=== PATIENT | female | born 1965 | race Caucasian/White ===

== ENCOUNTER → 2018-06-26 | Outpatient (CLI) | payer OTHER, SELFPAY ==
--- NOTE | 2018-06-26 | DI.US.S_ITS ---
PROCEDURE: US PELVIC COMPLETE INDICATIONS: POSTMENOPAUSAL BLEEDING TECHNIQUE: Real-time scanning was performed of the pelvic organs, with image documentation. Additional endovaginal scanning was necessary due to incomplete visualization of the adnexal and endometrial structures by transabdominal scanning. COMPARISON: None. FINDINGS: Transabdominal scanning: Limited scanning through the kidneys shows no hydronephrosis. No pathologic free abdominal or pelvic fluid. Endovaginal scanning: Uterus: Uterus is normal in size at 5.7 x 3.1 x 5.1 cm. The endometrium measures 5.4 mm in combined thickness. 2.1 x 1.5 x 2.1 cm posterior intramural fibroid. Ovaries: Right ovary not visualized. Normal left ovary measured 1.8 x 1.0 x 1.9 cm. IMPRESSION: 1. Mild thickening of the endometrial complex measuring 5.4 mm in this postmenopausal female with history of vaginal bleeding. Gynecologic consultation is recommended. 2. 2.1 cm posterior intramural fibroid. Dictated by: Esdras Evans [facility] Interpreted: Montana Moody MD on 06/26/2018 at 11:07 Approved by: Montana Moody M.D. on 06/26/2018 at 13:22
== END ==
LOC: US 08:49
PROVIDERS: Visit Provider Family Medicine
DX: N95.0 Postmenopausal bleeding (principal); D25.1 Intramural leiomyoma of uterus
CPT/HCPCS: 76830; 76856

== ENCOUNTER 2020-08-17 13:34 | Emergency (ER) | payer BC, SELFPAY ==
[2020-08-17] VITALS (11 sets, daily range): BP systolic 116–171; BP diastolic 64–97; PULSE 60–69; RESP 18–27; TEMP 36.9; O2SAT 96–100; BMI 24.9
--- NOTE | 2020-08-17 13:56 | ED.BACK ---
HPI - Back Pain/Injury <Sarah Ortega PA-C - Last Filed: 08/17/20 22:09> General Chief Complaint: Back Pain/Injury Stated Complaint: states pulled muscle in her back Time Seen by Provider: 08/17/20 13:41 Source: patient Limitations: no limitations History of Present Illness HPI Narrative: Uncomfortable Appearing 55-year-old female history of tubal ligation, appendectomy, cholecystectomy presents to the emergency department complaining of back pain on the right side that has been present for 2 days and is worsening. She states she has been feeling unwell for the last few days and has been ?mostly in bed. She reports she has a intense constant burning pain in her right low back that does not radiate. She has also been having some nausea today. She thinks she may have been having some discomfort with urination recently but she is not 100% sure. Her pain seems to be better if she is lying flat and is worse if she is sitting up it does seem better in certain positions than others. She has not had a good appetite for the last couple of days and she has eaten very little and had very little to drink, reports she has also felt she has had some chills but denies any fever, abdominal pain, vomiting, diarrhea, constipation, body aches, chest pain, shortness of breath, cough or any other symptoms. Last bowel movement was earlier today was normal for her. She notes that she has had swollen lymph nodes under her chin for 3 months now, has been seen for this. MD Complaint: back pain Onset (ago): day(s) (2) Duration: constant Location: right flank and right lower back Severity: severe (6/10) Quality: burning Radiation: none Severity scale (1-10): 6 Relieving factors: supine Exacerbating factors: sitting upright Context: unknown (no injury) Associated symptoms: chills and other (tired last few days, nausea) Treatments prior to arrival: other (none) Related Data Home Medications Medication Instructions Recorded Confirmed triamcinolone acetonide [Triderm] 0.1 % TOPICAL #90 gm 02/20/13 Previous Rx's Medication Instructions Recorded baclofen 10 mg PO TID #20 tab 08/17/20 lidocaine 1 patch TOP DAILY #15 each 08/17/20 Allergies Allergy/AdvReac Type Severity Reaction Status Date / Time codeine AdvReac Verified 08/17/20 13:42 Review of Systems <Sarah Ortega PA-C - Last Filed: 08/17/20 22:09> Review of Systems Narrative: GENERAL: Positive for chills and fatigue, negative for malaise, fever, sweats. HEENT: Denies sinus pain, ear pain, sore throat, difficulty swallowing, dizziness, positive for swollen lymph nodes for 3 months. RESPIRATORY: Denies dyspnea, cough, wheezing, hemoptysis, sputum. CARDIOVASCULAR: Denies chest pain, palpitations, orthopnea, edema, GASTROINTESTINAL: Positive for nausea and reduced appetite reduced oral intake for 2 days, negative for vomiting, abdominal pain, diarrhea, constipation, melena. : Denies dysuria, frequency, incontinence, hematuria, urinary retention. MUSCULOSKELETAL: Positive for burning flank pain on the right side. Denies weakness, joint pain, or bony pain SKIN: Denies rash, skin lesions, or other NEUROLOGIC: Denies weakness, headache, numbness, change in speech, confusion, seizures, incoordination. PSYCHIATRIC: No concerning psychosocial issues. 12 point review of systems is negative except for those stated above Patient History <Sarah Ortega PA-C - Last Filed: 08/17/20 22:09> Social History Smoking Status: Current every day smoker Smoking Status: Current every day smoker alcohol intake frequency: holidays/special occasions only Substance Use Type: does not use Exam <Sarah Ortega PA-C - Last Filed: 08/17/20 22:09> Narrative Exam Narrative: GENERAL: 55 year old patient appears stated age. Well-nourished, well-developed patient, in moderate distress. HEAD: Atraumatic. Normocephalic. EYES: Pupils equal round and reactive. Extraocular motions intact. No scleral icterus. No injection or drainage. ENT: Nose without bleeding, purulent drainage. Throat without erythema, tonsillar hypertrophy or exudate. Airway patent. NECK: Trachea midline. Non tender. She has bilateral lymphadenopathy at the tonsillar nodes that is slightly tender to palpation. CARDIOVASCULAR: Regular rate and rhythm without murmurs, gallops, or rubs. RESPIRATORY: Clear to auscultation. Breath sounds equal bilaterally. No wheezes, rales, or rhonchi. GASTROINTESTINAL: Abdomen soft, she is tender in the right lower quadrant and slightly tender in the left lower quadrant, otherwise non-tender, nondistended, negative Arguello sign. EXTREMITIES: No edema or joint tenderness. BACK: Bilateral flank tenderness most significant and with CVA tenderness on the right. Otherwise Nontender without deformity or crepitance. NEURO: AOx3. SKIN: No rash or erythema of visible areas Initial Vital Signs Initial Vital Signs: Vital Signs Temperature 98.5 F 08/17/20 13:38 Pulse Rate 69 08/17/20 13:38 Respiratory Rate 18 08/17/20 13:38 Blood Pressure 171/75 H 08/17/20 13:38 Pulse Oximetry 99 08/17/20 13:38 <Yuko Sheikh DO - Last Filed: 08/20/20 07:36> Initial Vital Signs Initial Vital Signs: Vital Signs Temperature 98.5 F 08/17/20 13:38 Pulse Rate 69 08/17/20 13:38 Respiratory Rate 18 08/17/20 13:38 Blood Pressure 171/75 H 08/17/20 13:38 Pulse Oximetry 99 08/17/20 13:38 Scores <Sarah Ortega PA-C - Last Filed: 08/17/20 22:09> GCS [place] coma scale eye opening: Spontaneous Julisa coma scale verbal response: Orientated Julisa coma scale motor response: Obey commands Julisa coma scale total score: 15 Course <VIANCA Carter Last Filed: 08/17/20 22:09> Course Course Narrative: Patient has flank pain and CVA tenderness possibly consistent with a pyelonephritis, however she seems uncomfortable and has difficulty finding a position of comfort so I am also concerned for potential ureterolithiasis, she has had a reduced appetite as well as nausea and multiple previous abdominal surgeries I do feel it appropriate to get a CT scan for further evaluation. Muscle strain is possible however with abdominal tenderness CT is ordered [address] have returned fairly unremarkable she does have a slight white count however I suspect that this is stress reaction. Etiology of her pain is not 100% clear however on re-examination she does not have any abdominal pain she continues to have right sided pain in the area of the SI joint and paraspinal muscles of the lumbar region. She does have active muscle spasming present on exam. 16:52 Orders Ordered: Discontinued Medications Baclofen (Lioresal) 10 mg PO NOW ONE Stop: 08/17/20 16:44 Last Admin: 08/17/20 17:10 Dose: 10 mg Documented by: ALBA Fentanyl (Sublimaze) 50 mcg IV NOW ONE Stop: 08/17/20 15:22 Last Admin: 08/17/20 15:32 Dose: 50 mcg Documented by: MARK Fentanyl (Sublimaze) 50 mcg IV NOW ONE Stop: 08/17/20 16:50 Sodium Chloride (Normal Saline 0.9%) 1,000 mls @ 1,000 mls/hr IV BOLUS ONE Stop: 08/17/20 15:10 Last Infusion: 08/17/20 16:22 Dose: 0 mls/hr Documented by: Admin: 08/17/20 14:17 Dose: 1,000 mls/hr Documented by: MARK Ketorolac Tromethamine (Toradol) 15 mg IM NOW ONE Stop: 08/17/20 13:57 Last Admin: 08/17/20 14:16 Dose: 15 mg Documented by: MARK Ondansetron HCl (Zofran) 4 mg IV NOW ONE Stop: 08/17/20 13:57 Last Admin: 08/17/20 14:17 Dose: 4 mg Documented by: MARK Ondansetron HCl (Zofran) 4 mg IV NOW ONE Stop: 08/17/20 15:37 Last Admin: 08/17/20 15:38 Dose: 4 mg Documented by: MARK Vital Signs Vital signs: Vital Signs - 8 hr 08/17/20 14:30 08/17/20 15:39 08/17/20 15:40 Pulse Rate 63 61 Respiratory Rate 27 H Blood Pressure 158/69 H 139/64 Pulse Oximetry 98 100 100 08/17/20 16:00 08/17/20 16:01 08/17/20 16:30 Pulse Rate 62 62 Respiratory Rate Blood Pressure 116/97 H Pulse Oximetry 99 100 96 08/17/20 16:31 08/17/20 16:38 08/17/20 17:20 Pulse Rate 60 60 Respiratory Rate Blood Pressure 149/76 H 138/64 Pulse Oximetry 97 98 08/17/20 17:25 Pulse Rate 68 Respiratory Rate Blood Pressure 135/64 Pulse Oximetry 98 <Yuko Sheikh, DO - Last Filed: 08/20/20 07:36> Orders Ordered: Discontinued Medications Baclofen (Lioresal) 10 mg PO NOW ONE Stop: 08/17/20 16:44 Last Admin: 08/17/20 17:10 Dose: 10 mg Documented by: ALBA Fentanyl (Sublimaze) 50 mcg IV NOW ONE Stop: 08/17/20 15:22 Last Admin: 08/17/20 15:32 Dose: 50 mcg Documented by: MARK Fentanyl (Sublimaze) 50 mcg IV NOW ONE Stop: 08/17/20 16:50 Sodium Chloride (Normal Saline 0.9%) 1,000 mls @ 1,000 mls/hr IV BOLUS ONE Stop: 08/17/20 15:10 Last Infusion: 08/17/20 16:22 Dose: 0 mls/hr Documented by: Admin: 08/17/20 14:17 Dose: 1,000 mls/hr Documented by: MARK Ketorolac Tromethamine (Toradol) 15 mg IM NOW ONE Stop: 08/17/20 13:57 Last Admin: 08/17/20 14:16 Dose: 15 mg Documented by: MARK Ondansetron HCl (Zofran) 4 mg IV NOW ONE Stop: 08/17/20 13:57 Last Admin: 08/17/20 14:17 Dose: 4 mg Documented by: MARK Ondansetron HCl (Zofran) 4 mg IV NOW ONE Stop: 08/17/20 15:37 Last Admin: 08/17/20 15:38 Dose: 4 mg Documented by: MARK Vital Signs Vital signs: Vital Signs - 8 hr 08/17/20 14:30 08/17/20 15:39 08/17/20 15:40 Pulse Rate 63 61 Respiratory Rate 27 H Blood Pressure 158/69 H 139/64 Pulse Oximetry 98 100 100 08/17/20 16:00 08/17/20 16:01 08/17/20 16:30 Pulse Rate 62 62 Respiratory Rate Blood Pressure 116/97 H Pulse Oximetry 99 100 96 08/17/20 16:31 08/17/20 16:38 08/17/20 17:20 Pulse Rate 60 60 Respiratory Rate Blood Pressure 149/76 H 138/64 Pulse Oximetry 97 98 08/17/20 17:25 Pulse Rate 68 Respiratory Rate Blood Pressure 135/64 Pulse Oximetry 98 MDM - Back Pain/Injury <Sarah Ortega PA-C - Last Filed: 08/17/20 22:09> Differential Diagnosis Differential diagnosis: Likely lumbar radiculopathy, strain of lumbar region, renal colic, pyelonephritis, discitis and other (UTI, ureterolithiasis, adhesion, bowel obstruction) Medical Records Attestation: I reviewed the patient's medical records. Lab Data Attestation: I reviewed the patient's lab results. Result diagrams: 08/17/20 13:51 08/17/20 13:51 Labs: Lab Results 08/17/20 08/17/20 08/17/20 Range/Units 13:51 13:51 13:51 WBC 12.6 H (4.5-11.0) X10^3/uL RBC 4.59 (4.0-5.2) X10^6/uL Hgb 14.2 (12.0-16.0) g/dL Hct 42.7 (36-46) % MCV 93.0 (80-100) fL MCH 31.0 (26-34) PG MCHC 33.4 (30-36) % RDW 13.6 (11.6-14.8) % Plt Count 306 (150-400) X10^3/uL Neut % (Auto) 69.7 (50-75) % Lymph % (Auto) 24.6 L (25-40) % [place] % (Auto) 4.9 (3-14) % Eos % (Auto) 0.2 L (2-4) % Baso % (Auto) 0.6 (0-2) % Neut # (Auto) 8700 H (5201-2211) /uL Lymph # (Auto) 3100 (1095-4343) /uL [place] # (Auto) 600 (0-900) /uL Eos # (Auto) 0 (0-450) /uL Baso # (Auto) 100 (0-100) /uL Sodium 137 (137-145) mmol/L Potassium 3.9 (3.4-5.1) mmol/L Chloride 107 (98-107) mmol/L Carbon Dioxide 21 L (22-32) mmol/L BUN 12 (7-17) mg/dL Creatinine 0.54 (0.52-1.04) mg/dL Estimated GFR > 60.0 (>60) mL/min BUN/Creatinine Ratio 22.2 H (6-22) Glucose 102 H (70-100) mg/dL Lactate 0.9 (0.7-2.1) mmol/L Calcium 9.8 (8.4-10.2) mg/dL Total Bilirubin 0.7 (0.2-1.3) mg/dL AST 26 (14-36) IU/L ALT 15 (<35) IU/L Alkaline Phosphatase 91 (38-126) U/L Total Protein 8.0 (6.3-8.2) g/dL Albumin 4.7 (3.5-5.0) g/dL Globulin 3.3 (1.7-4.1) g/dL Albumin/Globulin Ratio 1.4 (1.0-2.8) Lipase (23-300) U/L Urine Color Urine Appearance Urine pH (4.5-8.0) Ur Specific [place] (1.000-1.035) Urine Protein (Negative) Urine Glucose (UA) (Negative) g/dL Urine Ketones (NEGATIVE) Urine Occult Blood (Negative) Urine Nitrate (Negative) Urine Bilirubin (NEGATIVE) Urine Urobilinogen (0.2) E.U./dL Ur Leukocyte Esterase (NEGATIVE) Urine RBC (0-5/HPF) Urine WBC (0-5/HPF) Ur Squamous Epith Cells (0-5/HPF) Urine Bacteria (None) Ur Culture Indicated? 08/17/20 08/17/20 Range/Units 13:51 15:11 WBC (4.5-11.0) X10^3/uL RBC (4.0-5.2) X10^6/uL Hgb (12.0-16.0) g/dL Hct (36-46) % MCV (80-100) fL MCH (26-34) PG MCHC (30-36) % RDW (11.6-14.8) % Plt Count (150-400) X10^3/uL Neut % (Auto) (50-75) % Lymph % (Auto) (25-40) % [place] % (Auto) (3-14) % Eos % (Auto) (2-4) % Baso % (Auto) (0-2) % Neut # (Auto) (4529-6130) /uL Lymph # (Auto) (0941-5768) /uL [place] # (Auto) (0-900) /uL Eos # (Auto) (0-450) /uL Baso # (Auto) (0-100) /uL Sodium (137-145) mmol/L Potassium (3.4-5.1) mmol/L Chloride (98-107) mmol/L Carbon Dioxide (22-32) mmol/L BUN (7-17) mg/dL Creatinine (0.52-1.04) mg/dL Estimated GFR (>60) mL/min BUN/Creatinine Ratio (6-22) Glucose (70-100) mg/dL Lactate (0.7-2.1) mmol/L Calcium (8.4-10.2) mg/dL Total Bilirubin (0.2-1.3) mg/dL AST (14-36) IU/L ALT (<35) IU/L Alkaline Phosphatase (38-126) U/L Total Protein (6.3-8.2) g/dL Albumin (3.5-5.0) g/dL Globulin (1.7-4.1) g/dL Albumin/Globulin Ratio (1.0-2.8) Lipase 172 (23-300) U/L Urine Color Yellow Urine Appearance Sl cloudy Urine pH 5.5 (4.5-8.0) Ur Specific [place] <=1.005 (1.000-1.035) Urine Protein Negative (Negative) Urine Glucose (UA) Negative (Negative) g/dL Urine Ketones 2+ H (NEGATIVE) Urine Occult Blood Trace-lysed (Negative) Urine Nitrate Negative (Negative) Urine Bilirubin Negative (NEGATIVE) Urine Urobilinogen 0.2 (0.2) E.U./dL Ur Leukocyte Esterase Negative (NEGATIVE) Urine RBC 0-1/hpf (0-5/HPF) Urine WBC 0-1/hpf (0-5/HPF) Ur Squamous Epith Cells 1-5 /hpf (0-5/HPF) Urine Bacteria Few (2-10) H (None) Ur Culture Indicated? Cult not indicated Imaging Data CT scan - abdomen/pelvis: Attestation: I personally reviewed and interpreted this imaging study as follows: Radiologist's Impression: [address] [address] [address] Scan Report Signed Patient: Sarah Gray WMR#: [id number] : 1965Acct:[id number] Age/Sex: 55 / FDate of Service: 08/17/20 Loc: ED Accession Number: [id number] Procedure: CT abdomen pelvis w con Ordering Provider: Sarah Ortega P.A-C PROCEDURE: CT ABDOMEN PELVIS W CON INDICATIONS: RLQ and R flank pain suspect ureterolithisis vs pyelo TECHNIQUE: After the administration of intravenous contrast, 5 mm thick sections acquired from the diaphragm to the symphysis. 5 mm coronal and sagittal reformats were acquired. For radiation dose reduction, the following was used: automated exposure control, adjustment of mA and/or kV according to patient size. COMPARISON: None. FINDINGS: Image quality: Excellent. ABDOMEN: Lung bases: Lung bases are clear. Heart size is normal. Solid organs: Liver is enlarged. Hepatic steatosis is seen. No discrete hepatic lesion. Gallbladder is surgically absent. Biliary system is non dilated. Pancreas enhances normally. Spleen is normal in size and enhancement. No adrenal nodules. Kidneys demonstrate normal size and enhancement, without hydronephrosis. Peritoneum and bowel: Bowel loops demonstrate normal wall thickness and caliber. No free fluid or air. Appendix is visualized and is within normal limits. Nodes and vessels: No retroperitoneal or mesenteric adenopathy by size criteria. Aorta and inferior vena cava are normal in size. Miscellaneous: Supraumbilical hernia is seen containing anterior wall of mid transverse colon. No evidence of incarceration. PELVIS: Genitourinary: Bladder wall thickness is normal. Miscellaneous: No inguinal hernias or adenopathy by size criteria. Subcentimeter bilateral inguinal lymph nodes are seen measures up to 9 millimeters in short axis diameter in left inguinal region. Bones: No suspicious bony lesions. No vertebral body compression fractures. Mild rightward scoliosis of lumbar spine is seen centered at L3 level. Degenerative endplate changes are noted throughout lumbar spine. IMPRESSION: 1. Hepatomegaly and hepatic steatosis. No discrete hepatic lesion. Prior cholecystectomy. 2. No renal stone or hydronephrosis. No perinephric fat stranding. No gross abnormality is seen in bilateral ureters and urinary bladder. 3. No bowel obstruction. Normal appendix. No free fluid or free air. No abnormal bowel wall thickening. 4. Supraumbilical hernia containing fat and anterior wall of mid transverse colon. No signs of incarceration. Dictated by: Montana Moody M.D. on 08/17/2020 at 14:28 Approved by: Montana Moody M.D. on 08/17/2020 at 14:34 [facility] Narrative Medical decision making narrative: Uncomfortable appearing 55-year-old woman to the emergency department complaining of right lower back and flank pain worsening over the last 2 days. Previous cholecystectomy, tubal ligation, appendectomy. No reported injury or trauma. Concern for pyelonephritis versus ureterolithiasis versus muscle strain or acute abdominal etiology. CT scan is unremarkable. Labs are also unremarkable including urine. Very mild leukocytosis I suspect is a stress reaction. On re-examination she has no abdominal pain, continues to have right flank pain and muscle spasming of the SI and right lower lumbar region. I believe the etiology of her pain is most likely a severe muscle spasm/muscle strain. She is discharged with baclofen, lidocaine patches advised to follow-up with physical therapy. As well as her primary care provider. Emergency return precautions provided, all questions answered. <Yuko Sheikh, DO - Last Filed: 08/20/20 07:36> Lab Data Labs: Lab Results 08/17/20 08/17/20 08/17/20 Range/Units 13:51 13:51 13:51 WBC 12.6 H (4.5-11.0) X10^3/uL RBC 4.59 (4.0-5.2) X10^6/uL Hgb 14.2 (12.0-16.0) g/dL Hct 42.7 (36-46) % MCV 93.0 (80-100) fL MCH 31.0 (26-34) PG MCHC 33.4 (30-36) % RDW 13.6 (11.6-14.8) % Plt Count 306 (150-400) X10^3/uL Neut % (Auto) 69.7 (50-75) % Lymph % (Auto) 24.6 L (25-40) % [place] % (Auto) 4.9 (3-14) % Eos % (Auto) 0.2 L (2-4) % Baso % (Auto) 0.6 (0-2) % Neut # (Auto) 8700 H (6455-2038) /uL Lymph # (Auto) 3100 (3835-7057) /uL [place] # (Auto) 600 (0-900) /uL Eos # (Auto) 0 (0-450) /uL Baso # (Auto) 100 (0-100) /uL Sodium 137 (137-145) mmol/L Potassium 3.9 (3.4-5.1) mmol/L Chloride 107 (98-107) mmol/L Carbon Dioxide 21 L (22-32) mmol/L BUN 12 (7-17) mg/dL Creatinine 0.54 (0.52-1.04) mg/dL Estimated GFR > 60.0 (>60) mL/min BUN/Creatinine Ratio 22.2 H (6-22) Glucose 102 H (70-100) mg/dL Lactate 0.9 (0.7-2.1) mmol/L Calcium 9.8 (8.4-10.2) mg/dL Total Bilirubin 0.7 (0.2-1.3) mg/dL AST 26 (14-36) IU/L ALT 15 (<35) IU/L Alkaline Phosphatase 91 (38-126) U/L Total Protein 8.0 (6.3-8.2) g/dL Albumin 4.7 (3.5-5.0) g/dL Globulin 3.3 (1.7-4.1) g/dL Albumin/Globulin Ratio 1.4 (1.0-2.8) Lipase (23-300) U/L Urine Color Urine Appearance Urine pH (4.5-8.0) Ur Specific [place] (1.000-1.035) Urine Protein (Negative) Urine Glucose (UA) (Negative) g/dL Urine Ketones (NEGATIVE) Urine Occult Blood (Negative) Urine Nitrate (Negative) Urine Bilirubin (NEGATIVE) Urine Urobilinogen (0.2) E.U./dL Ur Leukocyte Esterase (NEGATIVE) Urine RBC (0-5/HPF) Urine WBC (0-5/HPF) Ur Squamous Epith Cells (0-5/HPF) Urine Bacteria (None) Ur Culture Indicated? 08/17/20 08/17/20 Range/Units 13:51 15:11 WBC (4.5-11.0) X10^3/uL RBC (4.0-5.2) X10^6/uL Hgb (12.0-16.0) g/dL Hct (36-46) % MCV (80-100) fL MCH (26-34) PG MCHC (30-36) % RDW (11.6-14.8) % Plt Count (150-400) X10^3/uL Neut % (Auto) (50-75) % Lymph % (Auto) (25-40) % [place] % (Auto) (3-14) % Eos % (Auto) (2-4) % Baso % (Auto) (0-2) % Neut # (Auto) (0654-5332) /uL Lymph # (Auto) (1898-0906) /uL [place] # (Auto) (0-900) /uL Eos # (Auto) (0-450) /uL Baso # (Auto) (0-100) /uL Sodium (137-145) mmol/L Potassium (3.4-5.1) mmol/L Chloride (98-107) mmol/L Carbon Dioxide (22-32) mmol/L BUN (7-17) mg/dL Creatinine (0.52-1.04) mg/dL Estimated GFR (>60) mL/min BUN/Creatinine Ratio (6-22) Glucose (70-100) mg/dL Lactate (0.7-2.1) mmol/L Calcium (8.4-10.2) mg/dL Total Bilirubin (0.2-1.3) mg/dL AST (14-36) IU/L ALT (<35) IU/L Alkaline Phosphatase (38-126) U/L Total Protein (6.3-8.2) g/dL Albumin (3.5-5.0) g/dL Globulin (1.7-4.1) g/dL Albumin/Globulin Ratio (1.0-2.8) Lipase 172 (23-300) U/L Urine Color Yellow Urine Appearance Sl cloudy Urine pH 5.5 (4.5-8.0) Ur Specific [place] <=1.005 (1.000-1.035) Urine Protein Negative (Negative) Urine Glucose (UA) Negative (Negative) g/dL Urine Ketones 2+ H (NEGATIVE) Urine Occult Blood Trace-lysed (Negative) Urine Nitrate Negative (Negative) Urine Bilirubin Negative (NEGATIVE) Urine Urobilinogen 0.2 (0.2) E.U./dL Ur Leukocyte Esterase Negative (NEGATIVE) Urine RBC 0-1/hpf (0-5/HPF) Urine WBC 0-1/hpf (0-5/HPF) Ur Squamous Epith Cells 1-5 /hpf (0-5/HPF) Urine Bacteria Few (2-10) H (None) Ur Culture Indicated? Cult not indicated Discharge Plan Departure Patient Disposition: Home Clinical Impression: Muscle spasm Right lumbar pain Qualifiers: Chronicity: acute Sciatica presence: without sciatica Qualified Code(s): M54.5 - Low back pain Discharge Date/Time: 08/17/20 17:25 Instructions: DI for Low Back Pain, DI for Back Spasm, DI for Back Strain or Sprain Activity Restrictions/Additional Instructions: Thank you for letting us be part of your care in the emergency department today. There is no evidence of an emergent or life threatening illness at this time, but follow up with your doctor in 1-2 days is recommended nonetheless to continue to rule out serious underlying causes of your symptoms. Please call the office for an appointment. Please return to the Emergency Department for any worsening or persistent symptoms. Please take medications as directed. I do think that you have a muscle strain today and spasming of your muscles around her SI joint and the right lower lumbar spine. It may be helpful to try alternating ice and heat, I am also prescribing some lidocaine patches and I recommend that you take Tylenol and ibuprofen for pain, I think you would probably benefit from seeing physical therapy and I do want you to follow-up with your primary care provider in 2 days for a recheck. If you do have any new or worsening symptoms of concern to please not hesitate to be re-evaluated or return to the emergency department. If you do develop fevers, vomiting, abdominal pain or any other symptoms please not hesitate to be rechecked or evaluated in the ED Prescriptions: New lidocaine 5 % adhesive patch,medicated 1 patch TOP DAILY Qty: 15 RF: 0 baclofen 10 mg tablet 10 mg PO TID Qty: 20 RF: 0 No Action triamcinolone acetonide [Triderm] 0.1 % cream 0.1 % Topical Qty: 90 RF: 0 Referrals: Arnaud Curry MD [Primary Care Provider] - Stand Alone Forms: Work Release Note
[2020-08-17] MEDS: KETOROLAC 60 MG/2 ML VIAL 15 MG IM (14:16)
[2020-08-17 14:17] LABS: Add Manual Diff / Slide Review NO; Basophils Absolute Auto 100 /uL (0-100); Basophils Percent Auto 0.6 % (0-2); Eosinophils Absolute Auto 0 /uL (0-450); Eosinophils Percent Auto 0.2 % (2-4); Hematocrit 42.7 % (36-46); Hemoglobin 14.2 g/dL (12.0-16.0); Lymphocytes Absolute Auto 3100 /uL (1100-4500); Lymphocytes Percent Auto 24.6 % (25-40); Mean Corpuscular HGB Conc 33.4 % (30-36); Monocytes Absolute Auto 600 /uL (0-900); Monocytes Percent Auto 4.9 % (3-14); Neutrophils Absolute Auto 8700 /uL (1500-7000); Neutrophils Percent Auto 69.7 % (50-75); Platelet Count 306 X10^3/uL (150-400); Red Blood Cell Count 4.59 X10^6/uL (4.0-5.2); Red Cell Distribution Width 13.6 % (11.6-14.8); White Blood Cell Count 12.6 X10^3/uL (4.5-11.0)
[2020-08-17] MEDS: ONDANSETRON 4 MG/2 ML INJ IV ×2 (14:17→15:38)
[2020-08-17] MEDS: SODIUM CHLORIDE 0.9% 1,000 ML 1000 ML IV (14:17)
--- NOTE | 2020-08-17 14:17 | DI.CT.S_ITS ---
PROCEDURE: CT ABDOMEN PELVIS W CON INDICATIONS: RLQ and R flank pain suspect ureterolithisis vs pyelo TECHNIQUE: After the administration of intravenous contrast, 5 mm thick sections acquired from the diaphragm to the symphysis. 5 mm coronal and sagittal reformats were acquired. For radiation dose reduction, the following was used: automated exposure control, adjustment of mA and/or kV according to patient size. COMPARISON: None. FINDINGS: Image quality: Excellent. ABDOMEN: Lung bases: Lung bases are clear. Heart size is normal. Solid organs: Liver is enlarged. Hepatic steatosis is seen. No discrete hepatic lesion. Gallbladder is surgically absent. Biliary system is non dilated. Pancreas enhances normally. Spleen is normal in size and enhancement. No adrenal nodules. Kidneys demonstrate normal size and enhancement, without hydronephrosis. Peritoneum and bowel: Bowel loops demonstrate normal wall thickness and caliber. No free fluid or air. Appendix is visualized and is within normal limits. Nodes and vessels: No retroperitoneal or mesenteric adenopathy by size criteria. Aorta and inferior vena cava are normal in size. Miscellaneous: Supraumbilical hernia is seen containing anterior wall of mid transverse colon. No evidence of incarceration. PELVIS: Genitourinary: Bladder wall thickness is normal. Miscellaneous: No inguinal hernias or adenopathy by size criteria. Subcentimeter bilateral inguinal lymph nodes are seen measures up to 9 millimeters in short axis diameter in left inguinal region. Bones: No suspicious bony lesions. No vertebral body compression fractures. Mild rightward scoliosis of lumbar spine is seen centered at L3 level. Degenerative endplate changes are noted throughout lumbar spine. IMPRESSION: 1. Hepatomegaly and hepatic steatosis. No discrete hepatic lesion. Prior cholecystectomy. 2. No renal stone or hydronephrosis. No perinephric fat stranding. No gross abnormality is seen in bilateral ureters and urinary bladder. 3. No bowel obstruction. Normal appendix. No free fluid or free air. No abnormal bowel wall thickening. 4. Supraumbilical hernia containing fat and anterior wall of mid transverse colon. No signs of incarceration. Dictated by: Montana Moody M.D. on 08/17/2020 at 14:28 Approved by: Montana Moody M.D. on 08/17/2020 at 14:34
[2020-08-17 14:28] LABS: Alanine Aminotransferase 15 IU/L (<35); Albumin 4.7 g/dL (3.5-5.0); Albumin Globulin Ratio 1.4 (1.0-2.8); Alkaline Phosphatase 91 U/L (38-126); Aspartate Aminotransferase 26 IU/L (14-36); BUN Creatinine Ratio 22.2 (6-22); Bilirubin Total 0.7 mg/dL (0.2-1.3); Blood Urea Nitrogen 12 mg/dL (7-17); Calcium 9.8 mg/dL (8.4-10.2); Carbon Dioxide 21 mmol/L (22-32); Chloride 107 mmol/L (98-107); Estimated Glomerular Filt Rate > 60.0 mL/min (>60); Globulin 3.3 g/dL (1.7-4.1); Glucose 102 mg/dL (70-100); HEMOLYSIS 17 (0-50); Lipase 172 U/L (23-300); Potassium 3.9 mmol/L (3.4-5.1); Sodium 137 mmol/L (137-145)
[2020-08-17 14:29] LABS: Lactate (Lactic Acid) 0.9 mmol/L (0.7-2.1)
[2020-08-17 15:16] LABS: Appearance Urine UA SL CLOUDY; Bilirubin Urine UA NEGATIVE (NEGATIVE); Color Urine UA YELLOW; Glucose Urine UA NEGATIVE (Negative); Ketones Urine UA 2+ (NEGATIVE); Leukocyte Esterase Urine UA NEGATIVE (NEGATIVE); Nitrite Urine UA NEGATIVE (Negative); Occult Blood Urine UA TRACE-LYSED (Negative); Protein Urine UA NEGATIVE (Negative); Specific Gravity Urine UA <=1.005 (1.000-1.035); Urobilinogen Urine UA 0.2 E.U./dL (0.2)
[2020-08-17 15:26] LABS: pH Urine UA 5.5 (4.5-8.0)
[2020-08-17 15:27] LABS: Bacteria Urine Few (2-10); Culture Indicated Urine Cult Not Indicated; RBC Urine 0-1/HPF (0-5/HPF); Squamous Epithelial Cell Urine 1-5 /HPF (0-5/HPF); WBC Urine 0-1/HPF (0-5/HPF)
[2020-08-17] MEDS: fentaNYL 100 MCG/2 ML INJ 50 MCG IV (15:32)
[2020-08-17] MEDS: BACLOFEN 10 MG TABLET PO (17:10)
== END 2020-08-17 17:25 | disposition home or self-care (01) ==
PROVIDERS: Emergency Provider Student in an Organized Health Care Education/Training Program; PCP Family Medicine
DX: M62.830 Muscle spasm of back (principal); M54.5 Low back pain; R11.0 Nausea; R53.83 Other fatigue
CPT/HCPCS: 36415; 74177; 80053; 81001; 83605; 83690; 85025; 96361; 96372; 96374; 96375; 96376; 99284; J1885; J2405; J3010; Q9967

== ENCOUNTER → 2024-03-01 16:31 | Outpatient (CLI) | payer MEDICAID, SELFPAY ==
--- NOTE | 2024-03-01 16:34 | DI.US.S_ITS ---
PROCEDURE: US CAROTID DOPPLER BI INDICATIONS: BILATERAL CAROTID BRUITS TECHNIQUE: Color and pulse Doppler interrogation was performed of both carotid systems, with image documentation and velocity measurements. COMPARISON: None. FINDINGS: Stenosis calculations are based on SRU (S[employer] in [employer]) criteria. Right side: Brachial blood pressure: 155/9 mm Hg. Common carotid artery peak systolic velocity: 106 cm/sec. Internal carotid artery peak systolic velocity: 131 cm/sec. Internal carotid artery end diastolic velocity: 46 cm/sec. External carotid artery peak systolic velocity: 98 cm/sec. ICA/CCA peak systolic ratio: 1.3 . German scale imaging description: Minimal plaque at the bifurcation Percent internal carotid artery stenosis: 50-69% Vertebral artery: Flow direction is antegrade. Left side: Brachial blood pressure: 142/87 mm Hg. Common carotid artery peak systolic velocity: 107 cm/sec. Internal carotid artery peak systolic velocity: 98 cm/sec. Internal carotid artery end diastolic velocity: 45 cm/sec. External carotid artery peak systolic velocity: 111 cm/sec. ICA/CCA peak systolic ratio: 1.1 . German scale imaging description: Minimal plaque at the bifurcation Percent internal carotid artery stenosis: Less than 50% . Vertebral artery: Flow direction is antegrade. IMPRESSION: Less than 50% stenosis of the left internal carotid artery. 50-69% stenosis of the right internal carotid artery. Dictated by: Bailee Gonzáles M.D. on 03/02/2024 at 8:41 Approved by: Bailee oGnzáles M.D. on 03/02/2024 at 8:43
== END ==
PROVIDERS: PCP Family Medicine; Referring Provider Family Medicine; Visit Provider Family Medicine
DX: R09.89 Other specified symptoms and signs involving the circulatory and respiratory systems (principal); I65.23 Occlusion and stenosis of bilateral carotid arteries
CPT/HCPCS: 93880